=== PATIENT | male | born 1995 | race Caucasian/White ===

== ENCOUNTER 2024-01-13 21:52 | Emergency (ER) | payer OTHER ==
[2024-01-13] MEDS ORDERED: Divalproex Sodium DR 500 MG TAB ONE (22:33)
[2024-01-13] MEDS ORDERED: levETIRAcetam 500 MG (5 mL) VIAL ONE (22:33)
[2024-01-13] MEDS ORDERED: Bupivacaine PF 0.5% 30 ML VIAL ONE (22:36)
[2024-01-13] MEDS ORDERED: Acetaminophen 500 MG TAB ONE (22:37)
[2024-01-13] MEDS ORDERED: Lidocaine 1% w/Epinephrine 1:200K 30 ML VIAL ONE (22:38)
[2024-01-14] MEDS ORDERED: Triple Antibiotic Oint 1 GM Packet ONE (00:03)
== END 2024-01-14 00:46 ==
LOC: CSHERS 21:52 → EEVIPCON 21:52 → CSHERS 01-14 00:46
DX: S01.81XA Laceration without foreign body of other part of head, initial encounter (principal); R56.9 Unspecified convulsions; F17.210 Nicotine dependence, cigarettes, uncomplicated; Z55.6 Problems related to health literacy; Z79.899 Other long term (current) drug therapy; W19.XXXA Unspecified fall, initial encounter
CPT/HCPCS: 12013; 70450; 70486; 72125; 96374; J0665; J1953

== ENCOUNTER 2024-08-23 19:40 | Emergency (ER) | payer OTHER ==
[2024-08-23] MEDS ORDERED: Lidocaine 1% (PF) 30 ML VIAL ONE (20:15)
[2024-08-23] MEDS ORDERED: Lorazepam 2 MG/ML VIAL ONE (21:07)
[2024-08-23] MEDS ORDERED: levETIRAcetam 500 MG (5 mL) VIAL ONE (21:08)
[2024-08-23 21:27] LABS: #Basophils 0.03 10x3/uL (0.0-0.2); #Eosinophils 0.01 10x3/uL (0.0-0.5); #Monocytes 0.42 10x3/uL (0.0-1.1); #Neutrophils 2.99 10x3/uL (1.5-8.4); %Basophils 0.6 % (0.0-2.0); %Eosinophils 0.2 % (0.0-6.0); %Lymphocytes 29.8 % (18.0-47.0); %Monocytes 8.5 % (0.0-10.0); %Neutrophils 60.3 % (40.0-75.0); Hematocrit 38.6 % (38.8-50.0); Hemoglobin 13.7 g/dL (13.5-17.5); Mean Corpuscular HGB CONC 35.5 g/dL (32.0-36.0); Mean Corpuscular Hemoglobin 31.3 pg (27.0-33.0); Mean Corpuscular Volume 88.1 fL (81.2-95.1); Mean Platelet Volume 9.9 fL (7.4-10.4); Platelet Count 246 10x3/uL (150-450); RBC Distribution Width 12.1 % (11.5-14.5); Red Blood Cell (RBC) Count 4.38 10x6/uL (4.32-5.72)
[2024-08-23 21:40] LABS: PTT 26.7 sec (22.0-33.0); Prothrombin Time 10.9 sec (9.5-12.1)
[2024-08-23 21:44] LABS: ALT (SGPT) 26 U/L (8-55); AST (SGOT) 23 U/L (5-34); Albumin 4.2 g/dL (3.5-5.0); Alkaline Phosphatase 62 U/L (40-110); Anion Gap 16 mmol/L (10-20); BUN (Urea Nitrogen) 8 mg/dL (8.9-20.6); Bilirubin, Total 0.3 mg/dL (0.2-1.2); Calc. Creatinine Clearance 0 mL/min (70-130); Calcium 9.6 mg/dL (7.8-10.44); Carbon Dioxide 22 mmol/L (22-29); Chloride 106 mmol/L (98-107); Estimated GFR 123; Globulin 2.9 g/dL (2.4-3.5); Glucose 87 mg/dL (70-105); Potassium 3.9 mmol/L (3.5-5.1); Protein, Total 7.1 g/dL (6.0-8.3); Sodium 140 mmol/L (136-145)
[2024-08-23] MEDS ORDERED: PROPOFOL 20 ML ONE (21:47)
[2024-08-23] MEDS ORDERED: fentaNYL 50 mcg/mL 1 mL Vial ONE (21:47)
[2024-08-23] MEDS ORDERED: Midazolam HCl 2 mg/2 ml Vial ONE (21:47)
[2024-08-23] MEDS ORDERED: Rocuronium Bromide 10 MG/ML (10ML VIAL) ONE (21:47)
[2024-08-23] MEDS ORDERED: SUGAMMADEX SODIUM 200 MG/2 ML VIAL ONE (22:36)
== END 2024-08-23 22:07 | disposition admitted as inpatient to this hospital (09) ==
LOC: EEVIPCON 19:40 → CSHERS 19:40
PROC: 0DC68ZZ Extirpation of Matter from Stomach, Via Natural or Artificial Opening Endoscopic (ICD-10-PCS; principal; 2024-08-23)
DX: T18.2XXA Foreign body in stomach, initial encounter (principal); S41.111A Laceration without foreign body of right upper arm, initial encounter; T14.91XA Suicide attempt, initial encounter; R56.9 Unspecified convulsions; X78.8XXA Intentional self-harm by other sharp object, initial encounter; Y93.89 Activity, other specified
CPT/HCPCS: 12034; 36415; 74018; 74022; 80053; 83605; 85025; 85610; 85730; 86850; 86900; 86901; 93005; 96374; 96375; J1953; J2060; J2250; J2704; J3010